=== PATIENT | female | born 1950 | race Caucasian/White ===

== ENCOUNTER → 2016-11-12 | Outpatient (CLI) | payer SELFPAY ==
--- NOTE | 2016-11-12 13:17 | CPEKG ---
Heart Rate: 69 RR Interval: 870 P-R Interval: 112 QRSD Interval: 80 QT Interval: 400 QTC Interval: 429 P [place]: 15 QRS [place]: 84 T Wave [place]: 57 EKG Severity - NORMAL ECG - EKG Impression: SINUS RHYTHM Electronically Signed By: Armand Melo 13-Nov-2016 08:03:54
== END ==
LOC: FCP 13:02
PROVIDERS: ATTEND Otolaryngology
DX: Z01.810 Encounter for preprocedural cardiovascular examination (principal)